=== PATIENT | male | born 1960 | race African-American/Black ===

== ENCOUNTER 2023-07-06 22:24 | Emergency (ER) | payer BC, OTHER ==
[~2023-07-06] VITALS: Ht 195.6 cm; Wt 86.0 kg
[2023-07-06 22:57] VITALS: O2SAT 98
[2023-07-06] MEDS ORDERED: IBUPROFEN 400MG TABLET PO ONE (23:45)
[2023-07-07 00:30] VITALS: BP 139/84
[2023-07-07] MEDS ORDERED: IBUP-2028 MT (00:49)
[2023-07-07 01:12] VITALS: PULSE 77; RESP 18; TEMP 98.1
== END 2023-07-07 01:14 | disposition home or self-care (01) ==
LOC: ER 22:24
DX: M54.50 Low back pain, unspecified (principal); M25.512 Pain in left shoulder
CPT/HCPCS: 73000; 73030; 99284; A4565